=== PATIENT | female | born 1980 | race Caucasian/White ===

== ENCOUNTER 2017-02-21 08:15 | Inpatient (IN) | payer OTHER ==
[~2017-02-21] VITALS: Ht 168 cm; Wt 124.8 kg
[2017-02-21 10:40] LABS: BILIRUBIN NEGATIVE (NEGATIVE); BLOOD NEGATIVE Ery/uL (NEGATIVE); CLARITY CLEAR (CLEAR); COLOR YELLOW (YELLOW); GLUCOSE (U) NORMAL (NORMAL); KETONE (U) NEGATIVE (NEGATIVE); LEUKOCYTES NEGATIVE Leu/uL (NEGATIVE); NITRITE NEGATIVE (NEGATIVE); PROTEIN NEGATIVE (NEGATIVE); UROBILINOGEN 0.2 mg/dL (0.2-1.0)
[2017-02-22 04:34] LABS: HCT 38.3 % (37.0-47.0); HGB 12.8 g/dl (12.5-16.0); MCHC 33.4 g/dL (32.0-36.0); MCV 89.7 fL (78.0-100.0); MPV 10.6 fL (6.0-9.5); RBC 4.27 M/uL (4.20-5.40); RDW 13.9 % (11.5-14.0); WBC 11.9 K/uL (4.0-10.5)
[2017-02-22 04:56] LABS: CREATININE 0.6 mg/dL (0.5-1.0); POTASSIUM 3.8 mmol/L (3.5-5.1)
[2017-02-23] MEDS ORDERED: SINGULAIR10 MG PO (16:59)
[2017-02-23] MEDS ORDERED: DESYREL50 MG PO (17:00)
[2017-02-23] MEDS ORDERED: COZAAR50 MG PO (17:00)
[2017-02-23] MEDS ORDERED: ATENOLOL25 MG PO (17:00)
[2017-02-23] MEDS ORDERED: ELAVIL25 MG PO (17:00)
[2017-02-23] MEDS ORDERED: OMEPRAZOLE40 MG PO (17:00)
[2017-02-23] MEDS ORDERED: ZOLOFT100 MG PO (17:00)
[2017-02-23] MEDS ORDERED: SYMBICORT 16010.2 GM INH (17:01)
[2017-02-23] MEDS ORDERED: VENTOLIN HFA IN18 GM INH (17:01)
[2017-02-23] MEDS ORDERED: LOVAZA1 GM PO (17:01)
[2017-02-23] MEDS ORDERED: TEMOVATE 0.05%45 GM TOP (17:02)
--- NOTE | 2017-02-23 17:46 | NUR ---
DISCHARGE: MARGO DRAIN REMOVED ORDERED WITH TIP INTACT, GAUZE DRESSING APPLIED. TOLERATED WELL. INSTRUCTED ON KEEPING SITE CLEAN AND DRY. REVIEWED D/C INSTRUCTIONS WITH PT AND MOTHER. VOICED UNDERSTANDING. VSS PRIOR TO D/C, NO DISTRESS NOTED. PT OUT TO PRIVATE VEHICLE TO BE DISCHARGED HOME VIA WHEELCHAIR DRIVEN BY MOTHER.
== END 2017-02-23 17:48 | disposition home or self-care (01) | DRG 621 ==
LOC: FMS 08:15 → FTCU 11:29
PROVIDERS: ADMIT Surgery
PROC: 0DB64Z3 Excision of Stomach, Percutaneous Endoscopic Approach, Vertical (ICD-10-PCS; principal; 2017-02-21 08:15)
PROC: 0DJ08ZZ Inspection of Upper Intestinal Tract, Via Natural or Artificial Opening Endoscopic (ICD-10-PCS; 2017-02-21 08:15)
DX: E66.01 Morbid (severe) obesity due to excess calories (principal); E11.9 Type 2 diabetes mellitus without complications; Z68.42 Body mass index [BMI] 45.0-49.9, adult; G47.33 Obstructive sleep apnea (adult) (pediatric); K21.9 Gastro-esophageal reflux disease without esophagitis; F41.9 Anxiety disorder, unspecified; R51 Headache; Z92.89 Personal history of other medical treatment; Z86.2 Personal history of diseases of the blood and blood-forming organs and certain disorders involving the immune mechanism; Z87.09 Personal history of other diseases of the respiratory system
CPT/HCPCS: 36415; 74240; 80048; 81003; 82150; 82962; 86850; 86900; 86901; 88307; 94010; J0131; J0690; J1170; J1885; J2405; J2704; J3010; J3411; J3475